=== PATIENT | female | born 1985 | race Hispanic/Latino ===

== ENCOUNTER → 2017-10-07 | Outpatient (CLI) | payer OTHER ==
[~2017-10-07] MED LIST: ISOVUE-370 76% 100ML VIAL (Q9967) As Ordered
== END ==
LOC: M RAD 07:34
DX: R59.0 Localized enlarged lymph nodes (principal)
CPT/HCPCS: Q9967

== ENCOUNTER 2018-02-26 16:36 | Emergency (ER) | payer OTHER ==
[2018-02-26 17:39] LABS: KETONE, URINE AUTO RFX NEGATIVE (NEGATIVE); LEUKOCYTE ESTERASE UR AUTO RFX NEGATIVE (NEGATIVE); MUCUS, URINE RFX SMALL (NEGATIVE); NITRITE, URINE AUTO RFX NEGATIVE (NEGATIVE); RBC, URINE AUTO RFX 2 /HPF (0-3); SPECIFIC GRAVITY UR AUTO RFX 1.016 (1.002-1.035); SQUAM EPITHELIAL CELL UR AURFX 3 /HPF (0-6); WBC, URINE AUTO RFX 2 /HPF (0-3)
[2018-02-26 18:06] LABS: BASO % 0.2 % (0.0-1.0); EOS # 0.2 10^3/uL (0.0-0.50); EOS % 2.9 % (0.0-3.0); HEMATOCRIT 39.2 % (36.0-47.0); HEMOGLOBIN 13.2 g/dl (12.0-15.5); IMMATURE GRANULOCYTE % 0.4 % (0-3.0); LYMPH # 2.3 10^3/uL (1.5-4.5); LYMPH % 27.8 % (24.0-44.0); MEAN CORPUSCULAR HEMOGLOBIN 29.9 pg (27.0-33.0); MEAN CORPUSCULAR HGB CONC 33.7 g/dl (32.0-36.5); MEAN CORPUSCULAR VOLUME 88.7 fl (80.0-96.0); MONO # 0.6 10^3/uL (0.0-0.8); NEUTROPHILS # 5.2 10^3/uL (1.8-7.7); NEUTROPHILS % 61.7 % (36.0-66.0); PLATELET COUNT, AUTOMATED 280 10^3/uL (150-450); RED BLOOD COUNT 4.42 10^6/uL (4.00-5.40); RED CELL DISTRIBUTION WIDTH 12.4 % (11.5-14.5); WHITE BLOOD COUNT 8.4 10^3/uL (4.0-10.0)
[2018-02-26 18:36] LABS: HCG, SERUM QUANTITATIVE 656 MIU/ML
[2018-02-26 18:55] LABS: CHLAMYDIA DNA AMPLIFICATION NEGATIVE (NEGATIVE); GC DNA AMPLIFICATION NEGATIVE (NEGATIVE)
== END 2018-02-26 20:00 | disposition home or self-care (01) ==
LOC: M ED 16:36
DX: O26.891 Other specified pregnancy related conditions, first trimester (principal); R10.2 Pelvic and perineal pain; O34.81 Maternal care for other abnormalities of pelvic organs, first trimester; N83.201 Unspecified ovarian cyst, right side; Z3A.01 Less than 8 weeks gestation of pregnancy
CPT/HCPCS: 76801

== ENCOUNTER → 2018-02-28 | Outpatient (CLI) | payer OTHER | LOC: M LAB 17:24 | PROVIDERS: ATTEND Physician Assistant | DX: Z32.00 Encounter for pregnancy test, result unknown (principal) ==

== ENCOUNTER 2018-03-17 10:07 | Emergency (ER) | payer OTHER ==
[~2018-03-17] VITALS: Ht 167.6 cm; Wt 62.7 kg
[2018-03-17] MEDS ORDERED: IBUP-1114 PO (10:15)
[2018-03-17] MEDS ORDERED: IBUPROFEN 600 MG TAB PO ONE (10:30)
[2018-03-17 10:48] LABS: HEMATOCRIT 39.6 % (36.0-47.0); HEMOGLOBIN 13.2 g/dl (12.0-15.5); MEAN CORPUSCULAR HEMOGLOBIN 29.9 pg (27.0-33.0); MEAN CORPUSCULAR HGB CONC 33.3 g/dl (32.0-36.5); MEAN CORPUSCULAR VOLUME 89.8 fl (80.0-96.0); PLATELET COUNT, AUTOMATED 279 10^3/uL (150-450); RED BLOOD COUNT 4.41 10^6/uL (4.00-5.40); WHITE BLOOD COUNT 8.5 10^3/uL (4.0-10.0)
--- NOTE | 2018-03-17 12:21 | REP ---
Emergency first trimester obstetric sonography: History: Pelvic pain and bleeding. LMP January 26, 2018. Question retained products of conception. Findings: Transabdominal and transvaginal scanning are performed. Uterine dimensions are 8.8 x 4.3 x 5.6 cm. Endometrial echo is 1.4 cm thick. No intrauterine gestation is seen. No vascularized hyperechoic tissue elements are seen in the endometrium. No free fluid is seen. A normal right ovary is seen measuring 2.2 x 2.0 x 2.2 cm. Its Doppler flow is normal at 0.56. The left ovary is normal measuring 2.4 x 1.8 x 1.5 cm. Its Doppler flow is also normal, resistive index is 0.56. Impression: Somewhat thickened heterogeneous endometrium. No definite retained products of conception. Electronically Signed by Rogelio Panchal MD 03/17/2018 07:11 P
[2018-03-17] MEDS ORDERED: IBUP-1022 PO (12:51)
[2018-03-17 12:56] VITALS: BP 125/68
--- NOTE | 2018-03-21 11:21 | ED PDOC ---
Post-Departure Follow-Up ft [facility] faxed formal report of ist trimester us for fu Elias Yen MD Mar 21, 2018 11:21
== END 2018-03-17 13:00 | disposition home or self-care (01) ==
LOC: M ED 10:07
DX: N93.8 Other specified abnormal uterine and vaginal bleeding (principal)